=== PATIENT | female | born 1970 | race African-American/Black ===

== ENCOUNTER 2021-08-06 13:56 | Emergency (ER) | payer OTHER ==
[~2021-08-06] VITALS: Ht 167.6 cm; Wt 93.0 kg
[2021-08-06] MEDS ORDERED: IBUPROFEN 600 MG TAB PO ONE (15:31)
[2021-08-06] MEDS ORDERED: IBUPROFEN 600 MG TAB ONE (15:56)
[2021-08-06] MEDS ORDERED: IBUPROFEN800 MG PO (16:53)
[2021-08-06] MEDS ORDERED: ULTRAM 50MG50 MG PO (16:54)
== END 2021-08-06 17:20 | disposition home or self-care (01) ==
LOC: FSED 14:58
DX: M25.511 Pain in right shoulder (principal); S46.001A Unspecified injury of muscle(s) and tendon(s) of the rotator cuff of right shoulder, initial encounter; X50.1XXA Overexertion from prolonged static or awkward postures, initial encounter; Y92.003 Bedroom of unspecified non-institutional (private) residence as the place of occurrence of the external cause; I10 Essential (primary) hypertension
CPT/HCPCS: 99283